=== PATIENT | female | born 1970 | race Caucasian/White ===

== ENCOUNTER 2018-07-16 08:32 | Inpatient (IN) | payer MEDICAID ==
[2018-07-16] MEDS: DILTIAZEM 25 MG INJ IV (09:10)
[2018-07-16] MEDS: SOD CHLORIDE 0.9% 1,000 ML IV (09:11)
[2018-07-16 09:21] LABS: ADD MAN DIFF? NO
[2018-07-16 09:36] LABS: BASOPHIL # 0.1 10^3/ul (0.0-0.1); BASOPHILS % 0.4 % (0.0-2.0); EOSINOPHILS # 0.1 10^3/ul (0.0-0.5); EOSINOPHILS % 0.8 % (0.0-7.0); HEMATOCRIT 28.4 % (37.0-47.0); HEMOGLOBIN 8.3 g/dl (12.0-16.0); LYMPHOCYTES # 3.2 10^3/ul (0.8-2.9); LYMPHOCYTES % 26.7 % (15.0-51.0); MEAN CORPUSCULAR HEMOGLOBIN 21.8 pg (29.0-33.0); MEAN CORPUSCULAR HGB CONC 29.2 g/dl (32.0-37.0); MEAN CORPUSCULAR VOLUME 74.5 fl (82.0-101.0); MEAN PLATELET VOLUME 11.1 fl (7.4-10.4); MONOCYTE # 0.6 10^3/ul (0.3-0.9); MONOCYTES % 5.3 % (0.0-11.0); NEUTROPHILS % 66.4 % (39.0-77.0); NUCLEATED RED BLOOD CELLS # 0.1 10^3/ul (0.0-0.0); NUCLEATED RED BLOOD CELLS% 0.5 /100WBC (0.0-0.0); PLATELET COUNT 267 10^3/UL (140-415); RED BLOOD COUNT 3.81 10^6/ul (4.20-5.40); RED CELL DISTRIBUTION WIDTH 18.6 % (11.5-14.5)
[2018-07-16 09:56] LABS: CREATINE KINASE 115 IU/L (23-200); CREATINE KINASE 117 IU/L (23-200)
[2018-07-16 10:02] LABS: CK-MB 2.39 ng/ml (0.0-2.4)
[2018-07-16 10:06] LABS: CK INDEX 1.5; CK-MB 1.78 ng/ml (0.0-2.4); TROPONIN-I < 0.012 ng/ml (0.000-0.120)
[2018-07-16 10:09] LABS: TROPONIN-I < 0.012 ng/ml (0.000-0.120)
[2018-07-16] MEDS: DILTIAZEM 30 MG TAB PO (10:32)
[2018-07-16 11:23] LABS: ALANINE AMINOTRANSFERASE 71 IU/L (13-69); ALBUMIN 3.5 g/dl (3.3-4.9); ALBUMIN/GLOBULIN RATIO 0.94; ALKALINE PHOSPHATASE 121 IU/L (42-121); ANION GAP 15 (8-16); ASPARTATE AMINO TRANSFERASE 99 IU/L (15-46); BILIRUBIN,INDIRECT 0.3 mg/dl (0-1.1); BILIRUBIN,TOTAL 0.3 mg/dl (0.2-1.3); BLOOD UREA NITROGEN 19 mg/dl (7-20); CALCIUM 8.4 mg/dl (8.4-10.2); CARBON DIOXIDE 23 mmol/L (21-31); CHLORIDE 108 mmol/L (97-110); CREATININE 0.67 mg/dl (0.44-1.00); GLUCOSE 134 mg/dl (70-220); LIPASE 52 U/L (23-300); POTASSIUM 3.6 mmol/L (3.5-5.1); SODIUM 142 mmol/L (135-144); TOTAL PROTEIN 7.2 g/dl (6.1-8.1)
[2018-07-16] MEDS ORDERED: ACETAMINOPHEN 325 MG TAB PO (11:30)
[2018-07-16] MEDS ORDERED: ONDANSETRON 4 MG INJ IV ×2 (11:30→12:30)
[2018-07-16] MEDS ORDERED: NACL 0.9% 3 ML SYG IV (12:30)
[2018-07-16 14:00] LABS: HEMOGLOBIN A1C 7.8 % (0-5.9)
[2018-07-16] MEDS: ENOXAPARIN 40 MG/0.4 ML SYG SC (14:01)
[2018-07-16 14:09] LABS: INR 1.16; PT RATIO 1.2
[2018-07-16 14:10] LABS: PARTIAL THROMBOPLASTIN TIME 28.4 Sec (25.0-35.0)
[2018-07-16 14:34] LABS: B-TYPE NATRIURETIC PEPTIDE 1430 PG/ML (0-125)
[2018-07-16] MEDS: FUROSEMIDE 20 MG INJ IV (17:47)
[2018-07-16] MEDS: DIGOXIN 500 MCG INJ IV (20:05)
[2018-07-16] MEDS: METOPROLOL 25 MG TAB PO (21:12)
[2018-07-16] MEDS: ENOXAPARIN 60 MG/0.6 ML SYG SC (21:15)
[2018-07-17 01:27] LABS: CREATINE KINASE 83 IU/L (23-200)
[2018-07-17 01:38] LABS: CK INDEX 1.2; TROPONIN-I < 0.012 ng/ml (0.000-0.120)
[2018-07-17] MEDS: DIGOXIN 500 MCG INJ IV ×3 (02:44→13:12)
[2018-07-17 07:34] LABS: ADD MAN DIFF? NO
[2018-07-17 07:38] LABS: BASOPHIL # 0.1 10^3/ul (0.0-0.1); BASOPHILS % 0.6 % (0.0-2.0); EOSINOPHILS # 0.2 10^3/ul (0.0-0.5); EOSINOPHILS % 2.3 % (0.0-7.0); HEMATOCRIT 27.9 % (37.0-47.0); HEMOGLOBIN 8.2 g/dl (12.0-16.0); LYMPHOCYTES # 2.7 10^3/ul (0.8-2.9); LYMPHOCYTES % 28.8 % (15.0-51.0); MEAN CORPUSCULAR HEMOGLOBIN 21.7 pg (29.0-33.0); MEAN CORPUSCULAR HGB CONC 29.4 g/dl (32.0-37.0); MEAN CORPUSCULAR VOLUME 73.8 fl (82.0-101.0); MEAN PLATELET VOLUME 11.1 fl (7.4-10.4); MONOCYTE # 0.6 10^3/ul (0.3-0.9); MONOCYTES % 6.4 % (0.0-11.0); NEUTROPHIL # 5.8 10^3/ul (1.6-7.5); NEUTROPHILS % 61.4 % (39.0-77.0); NUCLEATED RED BLOOD CELLS% 0.2 /100WBC (0.0-0.0); PLATELET COUNT 272 10^3/UL (140-415); RED BLOOD COUNT 3.78 10^6/ul (4.20-5.40); RED CELL DISTRIBUTION WIDTH 18.7 % (11.5-14.5)
[2018-07-17 07:38] LABS: WHITE BLOOD COUNT 9.4 10^3/ul (4.8-10.8)
[2018-07-17 08:10] LABS: ALANINE AMINOTRANSFERASE 67 IU/L (13-69); ALBUMIN 3.3 g/dl (3.3-4.9); ALBUMIN/GLOBULIN RATIO 0.84; ALKALINE PHOSPHATASE 115 IU/L (42-121); ANION GAP 13 (8-16); ASPARTATE AMINO TRANSFERASE 40 IU/L (15-46); BILIRUBIN,INDIRECT 0.5 mg/dl (0-1.1); BILIRUBIN,TOTAL 0.5 mg/dl (0.2-1.3); BLOOD UREA NITROGEN 11 mg/dl (7-20); CALCIUM 8.4 mg/dl (8.4-10.2); CARBON DIOXIDE 29 mmol/L (21-31); CHLORIDE 105 mmol/L (97-110); CHOLESTEROL 97 mg/dl (100-200); CREATININE 0.62 mg/dl (0.44-1.00); GLUCOSE 105 mg/dl (70-220); HDL CHOLESTEROL 32 mg/dl (34-88); LDL CHOLESTEROL,CALCULATED 41 mg/dl; MAGNESIUM 2.1 mg/dl (1.7-2.5); PHOSPHORUS 4.1 mg/dl (2.5-4.9); POTASSIUM 3.7 mmol/L (3.5-5.1); SODIUM 143 mmol/L (135-144); TOTAL PROTEIN 7.2 g/dl (6.1-8.1); TRIGLYCERIDES 121 mg/dl (0-149)
[2018-07-17] MEDS: ASPIRIN 81 MG TAB PO (08:36)
[2018-07-17] MEDS: METOPROLOL 25 MG TAB PO (08:37)
[2018-07-17] MEDS: ENOXAPARIN 60 MG/0.6 ML SYG SC ×2 (08:44→21:43)
[2018-07-17 09:01] LABS: CREATINE KINASE 78 IU/L (23-200)
[2018-07-17 09:13] LABS: CK INDEX 1.1; CK-MB 0.82 ng/ml (0.0-2.4)
[2018-07-17 09:17] LABS: TROPONIN-I < 0.012 ng/ml (0.000-0.120)
[2018-07-17 11:16] LABS: IRON 24 ug/dl (35-150)
[2018-07-17 11:26] LABS: % IRON SATURATION 6 % SAT (22-52); TOTAL IRON BINDING CAPACITY 427 ug/dl (241-421)
[2018-07-17 12:29] LABS: FERRITIN 6.2 ng/ml (6.2-137.0)
[2018-07-17 12:31] LABS: CREATINE KINASE 65 IU/L (23-200)
[2018-07-17 12:44] LABS: CK INDEX 0.9; CK-MB 0.59 ng/ml (0.0-2.4); TROPONIN-I < 0.012 ng/ml (0.000-0.120)
[2018-07-17 12:59] LABS: FOLATE > 20.0 ng/ml (2.8-20.0)
[2018-07-17] MEDS: FUROSEMIDE 20 MG INJ IV (13:12)
[2018-07-17] MEDS: SOD FERRIC GLUC COMPLX 125 MG in SOD CHLORIDE 0.9% 100 ML IVPB (17:52)
[2018-07-17] MEDS: METOPROLOL 50 MG TAB PO (21:00)
[2018-07-17] MEDS: METOPROLOL 5 MG INJ IV (23:24)
[2018-07-18] MEDS: METOPROLOL 50 MG TAB PO (08:03)
[2018-07-18] MEDS: ASPIRIN 81 MG TAB PO (08:03)
[2018-07-18] MEDS: ENOXAPARIN 60 MG/0.6 ML SYG SC (08:09)
[2018-07-18] MEDS: DIGOXIN 0.125 MG TAB PO (12:05)
[2018-07-18] MEDS: GUAIFENESIN 20 MG/ML 5ML CUP PO (12:09)
[2018-07-18] MEDS ORDERED: METOPROLOL 50 MG TAB PO (17:00)
[2018-07-19] MEDS ORDERED: ASPIRIN 325 MG TAB PO (09:00)
== END 2018-07-18 16:06 | disposition home or self-care (01) | DRG 309 ==
LOC: FTE 08:32 → TEL 11:14
DX: I48.91 Unspecified atrial fibrillation (principal); Z68.41 Body mass index [BMI] 40.0-44.9, adult; I50.32 Chronic diastolic (congestive) heart failure; R10.11 Right upper quadrant pain; R05 Cough; E66.01 Morbid (severe) obesity due to excess calories; D50.9 Iron deficiency anemia, unspecified; E11.9 Type 2 diabetes mellitus without complications; I95.9 Hypotension, unspecified; R79.89 Other specified abnormal findings of blood chemistry
CPT/HCPCS: 36415; 71045; 76705; 80053; 80061; 81025; 82550; 82553; 82607; 82728; 82746; 83036; 83540; 83690; 83735; 83880; 84100; 84443; 84484; 85025; 85610; 85730; 87400; 93005; 93306; 96374; 99291-25